=== PATIENT | male | born 1965 | race Caucasian/White ===

== ENCOUNTER 2020-11-10 18:43 | Emergency (ER) | payer BC ==
[2020-11-10] MEDS ORDERED: Albuterol/Ipratropium 3.0-0.5 MG/3 ML Neb Soln NEB ONE ×2 (19:04→20:29)
--- NOTE | 2020-11-10 19:30 | EDM.PDOC ---
ED HPI GENERAL MEDICAL PROBLEM - General Chief Complaint: Respiratory Problem Stated Complaint: chest congestion headache Time Seen by Provider: 11/10/20 18:55 Source of Information: Reports: Patient, RN Notes Reviewed History Limitations: Reports: No Limitations - History of Present Illness INITIAL COMMENTS - FREE TEXT/NARRATIVE: Patient is a 55-year-old male presenting to the emergency department with complaints of cough, body aches, headache, and shortness of breath. He also has nasal congestion, rhinitis, and postnasal drip. He has a history of asthma as well as numerous episodes of pneumonia. Symptoms began on . He has been using his albuterol inhaler as well as albuterol breathing treatments. He states the breathing treatments do help for approximately 1 hour and then he has no further benefit. Denies any known fever, vomiting, nausea, or diarrhea. Headache Pain Score (Numeric/FACES): 5 - Related Data Allergies Allergy/AdvReac Type Severity Reaction Status Date / Time No Known Allergies Allergy Verified 11/10/20 18:54 Home Meds: Home Meds Albuterol [Proair HFA] 2 puff INH Q4HR PRN 10/13/17 [History] Albuterol [Proventil Neb Soln] 2.5 mg .XX Q4H PRN #60 ampule 07/10/19 [Rx] Verapamil [Calan] 80 mg PO BID 07/10/19 [History] Albuterol/Ipratropium [DuoNeb 3.0-0.5 MG/3 ML] 3 ml .XX Q4H PRN #15 neb 11/10/20 [Rx] Codeine/Promethazine [Phenergan with Codeine] 5 ml PO Q4HR PRN #100 ml 11/10/20 [Rx] predniSONE [Prednisone] 20 mg PO ASDIRECTED #13 tablet 11/10/20 [Rx] Past Medical History - Past Health History Medical/Surgical History: Denies Medical/Surgical History Respiratory History: Reports: Asthma, Bronchitis, Recurrent Genitourinary History: Reports: None Psychiatric History: Reports: None Endocrine/Metabolic History: Reports: Obesity/BMI 30+ - Infectious Disease History Infectious Disease History: Reports: Chicken Pox - Past Surgical History HEENT Surgical History: Reports: Naso-Sinus Surgery Male Surgical History: Reports: None Endocrine Surgical History: Reports: None Musculoskeletal Surgical History: Reports: Shoulder Surgery, Other (See Below) Other Musculoskeletal Surgeries/Procedures:: bilateral shoulders, hand Social & Family History - Family History Family Medical History: No Pertinent Family History Cardiac: Reports: CAD Respiratory: Reports: Asthma : Reports: None Neurological: Reports: None Endocrine/Metabolic: Reports: None - Tobacco Use Tobacco Use Status *Q: Unknown Ever Used Tobacco - Caffeine Use Caffeine Use: Reports: Coffee ED ROS GENERAL - Review of Systems Review Of Systems: See Below Constitutional: Reports: Fatigue. Denies: Fever HEENT: Reports: Rhinitis, Sinus Problem. Denies: Ear Pain Respiratory: Reports: Shortness of Breath, Wheezing, Cough, Sputum Cardiovascular: Reports: No Symptoms. Denies: Chest Pain Endocrine: Reports: No Symptoms GI/Abdominal: Reports: No Symptoms : Reports: No Symptoms Musculoskeletal: Reports: No Symptoms Skin: Reports: No Symptoms Neurological: Reports: Headache Psychiatric: Reports: No Symptoms Hematologic/Lymphatic: Reports: No Symptoms Immunologic: Reports: No Symptoms ED EXAM, GENERAL - Physical Exam Exam: See Below Exam Limited By: No Limitations General Appearance: Alert, WD/WN, No Apparent Distress Respiratory/Chest: No Respiratory Distress, Lungs Clear, No Accessory Muscle Use, Chest Non-Tender, Wheezing (expiratory throughout) Cardiovascular: Normal Peripheral Pulses, Regular Rate, Rhythm, No Edema, No Gallop, No JVD, No Murmur, No Rub Neurological: Alert, Oriented, CN II-XII Intact, Normal Cognition, Normal Gait, Normal Reflexes, No Motor/Sensory Deficits Psychiatric: Normal Affect, Normal Mood Skin Exam: Warm, Dry, Intact, Normal Color, No Rash Course - Vital Signs Last Recorded V/S: Last Vital Signs Temp 97.5 F 11/10/20 18:51 Pulse 97 11/10/20 21:00 Resp 16 11/10/20 21:00 BP 112/81 11/10/20 21:00 Pulse Ox 97 11/10/20 21:00 - Orders/Labs/Meds Labs: Laboratory Tests 11/10/20 11/10/20 11/10/20 Range/Units 19:03 19:32 19:32 WBC 8.56 (4.23-9.07) K/mm3 RBC 5.00 (4.63-6.08) M/mm3 Hgb 14.2 (13.7-17.5) gm/dl Hct 43.2 (40.1-51.0) % MCV 86.4 D (79.0-92.2) fl MCH 28.4 (25.7-32.2) pg MCHC 32.9 (32.2-35.5) g/dl RDW Std Deviation 45.8 H (35.1-43.9) fL Plt Count 209 (163-337) K/mm3 MPV 9.1 L (9.4-12.3) fl Neut % (Auto) 49.8 (34.0-67.9) % Lymph % (Auto) 34.1 (21.8-53.1) % [place] % (Auto) 12.0 (5.3-12.2) % Eos % (Auto) 3.6 (0.8-7.0) Baso % (Auto) 0.4 (0.1-1.2) % Neut # (Auto) 4.26 (1.78-5.38) K/mm3 Lymph # (Auto) 2.92 (1.32-3.57) K/mm3 [place] # (Auto) 1.03 H (0.30-0.82) K/mm3 Eos # (Auto) 0.31 (0.04-0.54) K/mm3 Baso # (Auto) 0.03 (0.01-0.08) K/mm3 Sodium 139 (136-145) mEq/L Potassium 3.6 (3.5-5.1) mEq/L Chloride 101 (98-107) mEq/L Carbon Dioxide 24 (21-32) mEq/L Anion Gap 17.6 H (5-15) BUN 12 (7-18) mg/dL Creatinine 1.0 (0.7-1.3) mg/dL Est Cr Clr Drug Dosing 88.21 mL/min Estimated GFR (MDRD) > 60 (>60) mL/min BUN/Creatinine Ratio 12.0 L (14-18) Glucose 83 (74-106) mg/dL Calcium 8.7 (8.5-10.1) mg/dL Total Bilirubin 0.5 (0.2-1.0) mg/dL AST 17 (15-37) U/L ALT 25 (16-63) U/L Alkaline Phosphatase 78 (46-116) U/L C-Reactive Protein 2.2 H* (<1.0) mg/dL Total Protein 7.4 (6.4-8.2) g/dl Albumin 4.0 (3.4-5.0) g/dl Globulin 3.4 gm/dL Albumin/Globulin Ratio 1.2 (1-2) SARS-CoV-2 RNA (COOPER) Negative (NEGATIVE) Meds: Medications Discontinued Medications Generic Name Dose Route Start Last Admin Trade Name Freq PRN Reason Stop Dose Admin Albuterol/Ipratropium 3 ml 11/10/20 19:04 11/10/20 19:15 Albuterol/Ipratropium 3.0-0.5 Mg/3 Ml Neb Soln NEB 11/10/20 19:05 3 ml ONETIME ONE Administration Albuterol/Ipratropium 6 ml 11/10/20 20:29 11/10/20 21:00 Albuterol/Ipratropium 3.0-0.5 Mg/3 Ml Neb Soln NEB 11/10/20 20:30 6 ml ONETIME ONE Administration Prednisone 40 mg 11/10/20 20:30 11/10/20 21:00 Prednisone 20 Mg Tab PO 11/10/20 20:31 40 mg ONETIME ONE Administration Promethazine HCl/Codeine 5 ml 11/10/20 20:39 11/10/20 21:00 Codeine/Promethazine 10-6.25 Mg/5 Ml Syrup 5 Ml Ud Cup PO 11/10/20 20:40 5 ml ONETIME ONE Administration - Re-Assessments/Exams Free Text/Narrative Re-Assessment/Exam: Patient is a 55-year-old male presenting to the emergency department with complaint of cough, shortness of breath, wheezing, and nasal congestion. Does have a history of asthma. Has been using his albuterol inhaler and nebulizer treatment at home with little relief. States that he gets coughing fits which then causes chest tightness. Does have diffuse expiratory wheeze throughout on exam. Lung sounds are otherwise clear. I have ordered DuoNeb breathing treatment blood work, chest x-ray, and a Covid test. 11/10/20 20:30 Work-up is grossly unremarkable. Blood work is normal, Covid is negative, chest x-ray shows no acute pneumonia. Discussed with patient that is likely suffering from a viral respiratory infection leading to asthma exacerbation. I will start him on prednisone as well as changing from albuterol to DuoNeb breathing treatments. He did have significant relief of shortness of breath with a DuoNeb. Also given prescription for Phenergan with codeine for cough through the [facility]. Discussed return precautions. Discharge instructions as documented. Departure - Departure Time of Disposition: 20:32 Disposition: Home, Self-Care 01 Condition: Good Clinical Impression: Viral illness Asthma exacerbation Qualifiers: Asthma severity: mild Asthma persistence: unspecified Qualified Code(s): J45.901 - Unspecified asthma with (acute) exacerbation - Discharge Information *PRESCRIPTION DRUG MONITORING PROGRAM REVIEWED*: No *COPY OF PRESCRIPTION DRUG MONITORING REPORT IN PATIENT TABITHA: No Prescriptions: Albuterol/Ipratropium [DuoNeb 3.0-0.5 MG/3 ML] 3 ml .XX Q4H PRN #15 neb PRN Reason: Shortness Of Breath Codeine/Promethazine [Phenergan with Codeine] 5 ml PO Q4HR PRN #100 ml PRN Reason: Cough predniSONE [Prednisone] 20 mg PO ASDIRECTED #13 tablet Instructions: Asthma, Adult, [id number], Viral Illness, Adult Referrals: Duke Kinney MD [Primary Care Provider] - Forms: ED Department Discharge Additional Instructions: You were seen in the emergency department today for evaluation with regards to cough, shortness of breath, as well as nasal congestion and drainage. Work-up included blood work, chest x-ray, and a Covid test. Results of your work were found to be normal. Covid test is negative. Chest x-ray shows no pneumonia. While in the ER, you received a DuoNeb breathing treatment which did help your symptoms. You also received your first dose of prednisone which is a steroid and cough syrup Prescription for DuoNeb's, prednisone, and phenergan with codeine cough syrup [facility] been [facility]. Uses medications as prescribed. If symptoms fail to improve over the next few days, recommend follow-up in the clinic. If you should experience any new or worsening symptoms of concern, please not hesitate to return to ER for reevaluation. Sepsis Event Note (ED) - Evaluation Sepsis Screening Result: No Definite Risk
[2020-11-10] MEDS ORDERED: predniSONE 20 MG Tab PO ONE (20:30)
[2020-11-10] MEDS ORDERED: Codeine/Promethazine 10-6.25 MG/5 ML Syrup 5 ML UD Cup PO ONE (20:39)
[2020-11-10 21:28] VITALS: BP 112/81; PULSE 97
--- NOTE | 2020-11-11 06:54 | CR ---
Chest: Portable view of the chest was obtained. Comparison: Prior chest x-ray of 07/10/19. Heart size and mediastinum are normal. Minimal scarring within the lateral left costophrenic angle. Lungs otherwise are clear. Bony structures show nothing acute. Impression: 1. Nothing acute is appreciated on frontal chest x-ray. Diagnostic code #2
== END 2020-11-10 21:00 | disposition home or self-care (01) ==
LOC: JD.ED 18:43
DX: J45.901 Unspecified asthma with (acute) exacerbation (principal); B34.9 Viral infection, unspecified; E66.9 Obesity, unspecified; Z68.36 Body mass index [BMI] 36.0-36.9, adult; Z20.822 Contact with and (suspected) exposure to COVID-19
CPT/HCPCS: 36415; 71045; 80053; 85025; 86140; 87635; 94640; 99285; A9270; J7512; 99284; J7620-GY; U0002

== ENCOUNTER 2021-03-27 13:10 | Emergency (ER) | payer BC ==
[2021-03-27] MEDS ORDERED: Sodium Chloride 0.9% 1,000 ML IV ONE (13:44)
--- NOTE | 2021-03-27 14:17 | CR ---
Chest: PA and lateral views of the chest were obtained. Comparison: Prior chest x-ray of 11/10/20. Heart size and mediastinum are normal. Slight areas of parenchymal change are noted within the left perihilar region. Prior right shoulder surgery is seen. No acute osseous abnormality is appreciated. Impression: 1. Slight parenchymal change within the left perihilar region presumably representing mild COVID pneumonia. 2. No other acute abnormality is seen. Diagnostic code #3
[2021-03-27] MEDS ORDERED: Dexamethasone 4 MG Tab PO ONE (14:27)
[2021-03-27] MEDS ORDERED: diphenhydrAMINE 50 MG/ML SDV IVPUSH PRN (14:29)
[2021-03-27] MEDS ORDERED: EPINEPHrine 1 MG/ML SDV IM PRN (14:29)
[2021-03-27] MEDS ORDERED: Famotidine 20 MG/2 ML SDV IVPUSH PRN (14:29)
[2021-03-27] MEDS ORDERED: methylPREDNISolone Sodium Succinate 125 MG/2 ML SDV IVPUSH PRN (14:29)
[2021-03-27] MEDS ORDERED: Sodium Chloride 0.9% 10 ML Syringe FLUSH SCH (14:30)
--- NOTE | 2021-03-27 15:41 | EDM.PDOC ---
ED HPI GENERAL MEDICAL PROBLEM - General Chief Complaint: Respiratory Problem Stated Complaint: COVID + LOW 02 Time Seen by Provider: 03/27/21 13:36 Source of Information: Reports: Patient, RN Notes Reviewed History Limitations: Reports: No Limitations - History of Present Illness INITIAL COMMENTS - FREE TEXT/NARRATIVE: Patient is a 56-year-old male presenting to the emergency department with complaints of worsening Covid symptoms. He developed symptoms of cough, fever, chills, loss of appetite last Wednesday last Wednesday and was diagnosed with Covid on Wednesday. He reports that he was feeling better but then yesterday symptoms worsened. He complains of extreme fatigue and body aches. He has extensive cough with shortness of breath. Reports he checked his oxygen at home and was found to be 82% on room air, however on arrival to ER oxygen saturations are 98% on room air. Denies any nausea, vomiting, diarrhea. - Related Data Allergies Allergy/AdvReac Type Severity Reaction Status Date / Time No Known Allergies Allergy Verified 03/27/21 13:32 Home Meds: Home Meds Albuterol [Proair HFA] 2 puff INH Q4HR PRN 10/13/17 [History] Albuterol [Proventil Neb Soln] 2.5 mg .XX Q4H PRN #60 ampule 07/10/19 [Rx] Verapamil [Calan] 80 mg PO BID 07/10/19 [History] dexAMETHasone [Decadron] 6 mg PO DAILY #4 tablet 03/27/21 [Rx] Past Medical History - Past Health History Medical/Surgical History: Denies Medical/Surgical History Respiratory History: Reports: Asthma, Bronchitis, Recurrent Genitourinary History: Reports: None Neurological History: Reports: Headaches, Chronic Psychiatric History: Reports: None Endocrine/Metabolic History: Reports: Obesity/BMI 30+ - Infectious Disease History Infectious Disease History: Reports: Chicken Pox - Past Surgical History HEENT Surgical History: Reports: Naso-Sinus Surgery Male Surgical History: Reports: None Endocrine Surgical History: Reports: None Musculoskeletal Surgical History: Reports: Shoulder Surgery, Other (See Below) Other Musculoskeletal Surgeries/Procedures:: bilateral shoulders, hand Social & Family History - Family History Family Medical History: No Pertinent Family History Cardiac: Reports: CAD Respiratory: Reports: Asthma : Reports: None Neurological: Reports: None Endocrine/Metabolic: Reports: None - Tobacco Use Tobacco Use Status *Q: Never Tobacco User - Caffeine Use Caffeine Use: Reports: Coffee - Recreational Drug Use Recreational Drug Use: No ED ROS GENERAL - Review of Systems Review Of Systems: See Below Constitutional: Reports: Fever, Chills, Weakness, Fatigue, Decreased Appetite HEENT: Reports: No Symptoms Respiratory: Reports: Shortness of Breath, Pleuritic Chest Pain, Cough Cardiovascular: Reports: No Symptoms Endocrine: Reports: No Symptoms GI/Abdominal: Reports: Decreased Appetite. Denies: Abdominal Pain, Diarrhea, Vomiting : Reports: No Symptoms Musculoskeletal: Reports: No Symptoms Skin: Reports: No Symptoms Neurological: Reports: No Symptoms Psychiatric: Reports: No Symptoms Hematologic/Lymphatic: Reports: No Symptoms Immunologic: Reports: No Symptoms ED EXAM, GENERAL - Physical Exam Exam: See Below Exam Limited By: No Limitations General Appearance: Alert, WD/WN, No Apparent Distress Respiratory/Chest: No Respiratory Distress, Lungs Clear, Normal Breath Sounds, No Accessory Muscle Use, Chest Non-Tender, Other (Harsh cough with deep breathing) Cardiovascular: Normal Peripheral Pulses, Regular Rate, Rhythm, No Edema, No Gallop, No JVD, No Murmur, No Rub GI/Abdominal: Normal Bowel Sounds, Soft, Non-Tender, No Organomegaly, No Distention, No Abnormal Bruit, No Mass Neurological: Alert, Oriented, CN II-XII Intact, Normal Cognition, Normal Gait, Normal Reflexes, No Motor/Sensory Deficits Psychiatric: Normal Affect, Normal Mood Skin Exam: Warm, Dry, Intact, Normal Color, No Rash Course - Vital Signs Last Recorded V/S: Last Vital Signs Temp 98.9 F 03/27/21 13:30 Pulse 94 03/27/21 17:00 Resp 20 03/27/21 15:15 BP 144/90 H 03/27/21 17:00 Pulse Ox 93 L 03/27/21 17:00 - Orders/Labs/Meds Labs: Laboratory Tests 03/27/21 03/27/21 03/27/21 Range/Units 13:40 13:40 13:40 WBC 4.90 (4.23-9.07) K/mm3 RBC 5.51 (4.63-6.08) M/mm3 Hgb 15.5 (13.7-17.5) gm/dl Hct 47.9 (40.1-51.0) % MCV 86.9 (79.0-92.2) fl MCH 28.1 (25.7-32.2) pg MCHC 32.4 (32.2-35.5) g/dl RDW Std Deviation 45.3 H (35.1-43.9) fL Plt Count 191 (163-337) K/mm3 MPV 9.5 (9.4-12.3) fl Neut % (Auto) 55.5 (34.0-67.9) % Lymph % (Auto) 28.8 (21.8-53.1) % [place] % (Auto) 13.3 H (5.3-12.2) % Eos % (Auto) 2.0 (0.8-7.0) Baso % (Auto) 0.2 (0.1-1.2) % Neut # (Auto) 2.72 (1.78-5.38) K/mm3 Lymph # (Auto) 1.41 (1.32-3.57) K/mm3 [place] # (Auto) 0.65 (0.30-0.82) K/mm3 Eos # (Auto) 0.10 (0.04-0.54) K/mm3 Baso # (Auto) 0.01 (0.01-0.08) K/mm3 D-Dimer, Quantitative 0.34 (0.19-0.50) mg/L Sodium 142 (136-145) mEq/L Potassium 3.7 (3.5-5.1) mEq/L Chloride 104 (98-107) mEq/L Carbon Dioxide 24 (21-32) mEq/L Anion Gap 17.7 H (5-15) BUN 19 H (7-18) mg/dL Creatinine 1.1 (0.7-1.3) mg/dL Est Cr Clr Drug Dosing 81.77 mL/min Estimated GFR (MDRD) > 60 (>60) mL/min BUN/Creatinine Ratio 17.3 (14-18) Glucose 106 H (70-99) mg/dL Lactic Acid (0.4-2.0) mmol/L Calcium 8.5 (8.5-10.1) mg/dL Total Bilirubin 0.4 (0.2-1.0) mg/dL AST 17 (15-37) U/L ALT 27 (16-63) U/L Alkaline Phosphatase 80 (46-116) U/L Total Protein 7.8 (6.4-8.2) g/dl Albumin 3.9 (3.4-5.0) g/dl Globulin 3.9 gm/dL Albumin/Globulin Ratio 1.0 (1-2) 03/27/21 Range/Units 13:40 WBC (4.23-9.07) K/mm3 RBC (4.63-6.08) M/mm3 Hgb (13.7-17.5) gm/dl Hct (40.1-51.0) % MCV (79.0-92.2) fl MCH (25.7-32.2) pg MCHC (32.2-35.5) g/dl RDW Std Deviation (35.1-43.9) fL Plt Count (163-337) K/mm3 MPV (9.4-12.3) fl Neut % (Auto) (34.0-67.9) % Lymph % (Auto) (21.8-53.1) % [place] % (Auto) (5.3-12.2) % Eos % (Auto) (0.8-7.0) Baso % (Auto) (0.1-1.2) % Neut # (Auto) (1.78-5.38) K/mm3 Lymph # (Auto) (1.32-3.57) K/mm3 [place] # (Auto) (0.30-0.82) K/mm3 Eos # (Auto) (0.04-0.54) K/mm3 Baso # (Auto) (0.01-0.08) K/mm3 D-Dimer, Quantitative (0.19-0.50) mg/L Sodium (136-145) mEq/L Potassium (3.5-5.1) mEq/L Chloride (98-107) mEq/L Carbon Dioxide (21-32) mEq/L Anion Gap (5-15) BUN (7-18) mg/dL Creatinine (0.7-1.3) mg/dL Est Cr Clr Drug Dosing mL/min Estimated GFR (MDRD) (>60) mL/min BUN/Creatinine Ratio (14-18) Glucose (70-99) mg/dL Lactic Acid 1.9 (0.4-2.0) mmol/L Calcium (8.5-10.1) mg/dL Total Bilirubin (0.2-1.0) mg/dL AST (15-37) U/L ALT (16-63) U/L Alkaline Phosphatase (46-116) U/L Total Protein (6.4-8.2) g/dl Albumin (3.4-5.0) g/dl Globulin gm/dL Albumin/Globulin Ratio (1-2) Meds: Medications Discontinued Medications Generic Name Dose Route Start Last Admin Trade Name Freq PRN Reason Stop Dose Admin Dexamethasone 6 mg 03/27/21 14:27 03/27/21 15:15 Dexamethasone 4 Mg Tab PO 03/27/21 14:28 6 mg ONETIME ONE Administration Diphenhydramine HCl 50 mg 03/27/21 14:29 Diphenhydramine 50 Mg/Ml Sdv IVPUSH ONETIME PRN hypersensitivity reaction Epinephrine HCl 0.3 mg 03/27/21 14:29 Epinephrine 1 Mg/Ml Sdv IM ONETIME PRN hypersensitivity reaction Famotidine 20 mg 03/27/21 14:29 Famotidine 20 Mg/2 Ml Sdv IVPUSH ONETIME PRN hypersensitivity reaction Sodium Chloride 1,000 mls @ 999 mls/hr 03/27/21 13:44 03/27/21 13:45 Normal Saline IV 03/27/21 14:44 999 mls/hr ONETIME ONE Administration Bamlanivimab 700 mg/ 310 mls @ 310 mls/hr 03/27/21 14:29 03/27/21 15:15 Etesevimab 1,400 mg/ Sodium IV 03/27/21 15:28 310 mls/hr Chloride ONETIME ONE Administration Methylprednisolone Sodium Succinate 125 mg 03/27/21 14:29 Methylprednisolone Sodium Succinate 125 Mg/2 Ml Sdv IVPUSH ONETIME PRN hypersensitivity reaction Sodium Chloride 30 ml 03/27/21 14:30 Sodium Chloride 0.9% 10 Ml Syringe FLUSH ASDIRECTED PRITI - Re-Assessments/Exams Free Text/Narrative Re-Assessment/Exam: 03/27/21 1430 Hematology is grossly unremarkable exception of a minimally elevated anion gap and BUN. Chest x-ray shows evidence of mild Covid pneumonia. Patient is receiving 1 L of IV fluids. D-dimer is normal. I have ordered dexamethasone 6 mg p.o. I spoke with patient to provide information about bamlanivimab treatment for patient I offered them the ``Patient and Caregiver NAEL Bamlanivimad Fact Sheet to read and review I stated the drug has been approved by an emergency use authorization (EUA) process and has not fully been FDA reviewed or approved The patient meets the EUA requirements I discussed there are other potential treatment options that are currently not FDA approved to treat COVID-19. Offered opportunity to ask questions and all questions were answered Patient voiced understanding and agreed to proceed with treatment for patient. 03/27/21 0775 Patient has completed the Bamlanivimab infusion with no complications. Oxygen saturation has maintained mid 90s throughout his stay in the ER. We will discharge her home with a prescription for dexamethasone. Discussed return precautions. Discharge instructions as documented. Departure - Departure Time of Disposition: 16:58 Disposition: Home, Self-Care 01 Preliminary Cause of *Q: Cardiac Arrest Condition: Good Clinical Impression: COVID-19 - Discharge Information *PRESCRIPTION DRUG MONITORING PROGRAM REVIEWED*: No *COPY OF PRESCRIPTION DRUG MONITORING REPORT IN PATIENT TABITHA: No Prescriptions: dexAMETHasone [Decadron] 6 mg PO DAILY #4 tablet Instructions: COVID-19 Referrals: Duke Kinney MD [Primary Care Provider] - Forms: ED Department Discharge Additional Instructions: You were seen in the emergency department for worsening of your COVID-19 symptoms. Work-up included blood work and chest x-ray. Your blood work was found to be normal. Chest x-ray showed that you have mild Covid pneumonia. While in the ER, you received Bamlanivimab infusion which is a monoclonal antibody. You have also received a dose of dexamethasone. Prescription for dexamethasone has been sent to your pharmacy. Take this medication as prescribed. Return to ER for new or worsening symptoms of concern. Sepsis Event Note (ED) - Evaluation Sepsis Screening Result: Possible Sepsis Risk
[2021-03-27 17:13] VITALS: BP 144/90; PULSE 94
== END 2021-03-27 17:20 | disposition home or self-care (01) ==
LOC: JD.ED 13:10
DX: U07.1 COVID-19 (principal); J45.909 Unspecified asthma, uncomplicated; E66.9 Obesity, unspecified; Z68.36 Body mass index [BMI] 36.0-36.9, adult
CPT/HCPCS: 36415; 71046; 80053; 83605; 85025; 85379; 99284; J7030; J7050; J8540; M0245; Q0245

== ENCOUNTER 2021-08-30 20:58 | Emergency (ER) | payer BC ==
[2021-08-30] MEDS ORDERED: HYDROmorphone 1 MG/ML Syringe IM ONE (21:15)
[2021-08-30 21:22] VITALS: BP 165/111; PULSE 101
== END 2021-08-30 22:15 | disposition home or self-care (01) ==
LOC: JD.ED 20:58
DX: S46.912A Strain of unspecified muscle, fascia and tendon at shoulder and upper arm level, left arm, initial encounter (principal); E66.9 Obesity, unspecified; Z68.36 Body mass index [BMI] 36.0-36.9, adult; W00.0XXA Fall on same level due to ice and snow, initial encounter
CPT/HCPCS: 73030; 73060; 96372; 99283; J1170